=== PATIENT | female | born 1985 | race Caucasian/White ===

== ENCOUNTER 2018-04-30 16:54 | Emergency (ER) | payer OTHER ==
[2018-04-30 17:24] VITALS: O2SAT 100
[2018-04-30] MEDS ORDERED: XYLOCAINE 1% HCL 20 ML MDV IJ ONE (19:00)
[2018-04-30] MEDS ORDERED: Adacel Vial IM ONE ×2 (19:01→19:06)
[2018-04-30] MEDS ORDERED: XYLOCAINE 1% HCL 20 ML MDV ONE (19:08)
--- NOTE | 2018-04-30 19:09 | ERPHSYRPT ---
- History of Present Illness Time Seen by Provider: 04/30/18 18:59 Source: patient Exam Limitations: no limitations Patient Subjective Stated Complaint: cut left thumb and first finger on a tin can lid just prior to arrival. Triage Nursing Assessment: small lac noted to left thumb. 3cm lac to left first finger. patient unable to bend finger. has full rom to thumb. small amt bleeding noted. areas cleaned with sterile water and hibiclens. Physician History: Pt states, she accidentally cut her left thumb and index finger at 16:30 PM at home. She denies other injury or complaints, she does not remember her last Td immunization. Occurred: just prior to arrival Method of Injury: incised Quality: constant Severity of Pain-Max: mild Severity of Pain-Current: mild Extremities Pain Location: thumb: left (cut with can lid), 2nd finger: left ( cut with can lid) Modifying Factors: Improves With: nothing Associated Symptoms: none Allergies/Adverse Reactions: No Known Drug Allergies Allergy (Verified 04/30/18 17:24) Home Medications: No Reportable Medications [No Reported Medications] 07/05/14 [History] Hx Tetanus, Diphtheria Vaccination/Date Given: No Hx Influenza Vaccination/Date Given: No Hx Pneumococcal Vaccination/Date Given: No - Review of Systems Constitutional: No Symptoms Skin: Other (laceration of the left 1st and second fingers) All Other Systems: Reviewed and Negative - Past Medical History Pertinent Past Medical History: Yes Neurological History: No Pertinent History ENT History: No Pertinent History Cardiac History: No Pertinent History Respiratory History: No Pertinent History Endocrine Medical History: No Pertinent History Musculoskeletal History: No Pertinent History GI Medical History: No Pertinent History History: No Pertinent History Psycho-Social History: No Pertinent History Female Reproductive Disorders: Other Other Medical History: one ovary removed d/t benign tumor - Past Surgical History Past Surgical History: Yes Neuro Surgical History: No Pertinent History Cardiac: No Pertinent History Respiratory: No Pertinent History Gastrointestinal: No Pertinent History Genitourinary: No Pertinent History Musculoskeletal: No Pertinent History Female Surgical History: Other Other Surgical History: R OVARY REMOVED - Social History Smoking Status: Never smoker Exposure to second hand smoke: No Drug Use: none Patient Lives Alone: No - Female History Hx Last Menstrual Period: 04/23/18 Hx Now: No - Nursing Vital Signs Nursing Vital Signs: Initial Vital Signs Temperature 9.3 F 10/03/18 16:57 Pulse Rate 88 04/30/18 16:57 Respiratory Rate 16 04/30/18 16:57 Blood Pressure 161/101 04/30/18 16:57 O2 Sat by Pulse Oximetry 100 04/30/18 16:57 Pain Scale Pain Intensity 8 - Physical Exam General Appearance: no apparent distress Eyes, Ears, Nose, Throat Exam: normal ENT inspection, moist mucous membranes Neck Exam: normal inspection, non-tender Cardiovascular/Respiratory Exam: chest non-tender, normal breath sounds, regular rate/rhythm, heart sounds normal Abdominal Exam: non-tender, soft Back Exam: normal inspection, No CVA tenderness Hand Exam: laceration (1 cm superficial laceration on the tip of the thumb, no bleeding or redness. 1.5 cm linear laceration of the dorsal mid phalanx of the left second finger, no bleeding, no sign of tendon on neurovascular injury, normal capillary refills.) Neuro/Tendon Exam: normal sensation, normal motor functions, normal tendon functions Mental Status Exam: alert, oriented x 3 Skin Exam: normal color, warm, dry SpO2 Interpretation: normal SpO2: 100 Oxygen Delivery: Room Air Procedures - Laceration/Wound Repair Left Finger Wound Location: Left, hand Wound Length (cm): 1.5 Wound's Depth, Shape: into muscle, linear Wound Explored: clean Irrigated: Yes Hibiclens Prep: No Anesthesia: digital block, 1% Lidocaine Volume Anesthetic (ccs): 5 Wound Repaired With: sutures Suture Size/Type: 5-0, ethilon Number of Sutures: 5 Layer Closure?: No Sterile Dressing Applied?: Yes Splint Applied?: No Sling Applied?: No Progress: 04/30/18 19:51 The finger extensor was nicked slightly, but good extensor function noted, normal strength of end phalanx stretch. The tendon did not require sutures. Patient tolerated sutures well. - Course Nursing assessment & vital signs reviewed: Yes - Radiology Exams Left Hand X-ray Interpretation: Interpreted by me, Negative Ordered Tests: Active Orders 24 hr Category Date Time Status Prepare for Sutures STAT Care 04/30/18 19:00 Active Sutures STAT Care 04/30/18 19:00 Active Wound Care STAT Care 04/30/18 19:00 Active HAND (MINIMUM 3 VIEWS) Stat Exams 04/30/18 19:01 Taken Medication Summary Discontinued Medications Generic Name Dose Route Start Last Admin Trade Name Freq PRN Reason Stop Dose Admin Diphtheria/Tetanus/Acell Pertussis 0.5 ml 04/30/18 19:01 04/30/18 19:14 Adacel Vial IM 04/30/18 19:02 0.5 ml .ONCE ONE Administration Diphtheria/Tetanus/Acell Pertussis Confirm 04/30/18 19:06 Adacel Vial Administered 04/30/18 19:07 Dose 0.5 ml IM .STK-MED ONE Lidocaine HCl 5 ml 04/30/18 19:00 04/30/18 19:15 Xylocaine 1% Hcl 20 Ml Mdv IJ 04/30/18 19:01 5 ml STAT ONE Administration Lidocaine HCl Confirm 04/30/18 19:08 Xylocaine 1% Hcl 20 Ml Mdv Administered 04/30/18 19:09 Dose 5 ml .ROUTE .STK-MED ONE - Progress Progress: improved Progress Note: 04/30/18 19:53 Pt has been stable, no severe pain, I informed about the X ray report, and will discharge instructing to change sterile dry dressing daily, remove sutures after 1 week, return if severe pain,s welling, redness, discharge or fever> 101 F. Counseled pt/family regarding: diagnosis, need for follow-up, rad results - Departure Time of Disposition: 19:54 Departure Disposition: Home Clinical Impression: Laceration of finger of left hand Qualifiers: Encounter type: initial encounter Finger: index finger Damage to nail status: without damage Foreign body presence: without foreign body Qualified Code(s): S61.211A - Laceration without foreign body of left index finger without damage to nail, initial encounter Condition: Stable Critical Care Time: No Referrals: LATOYA TAYLOR [Primary Care Provider] - Instructions: Wound Care (DC), Laceration Repair With Stitches (DC) Additional Instructions: Removal of the sutures after 1 week, return if severe pain, redness, discharge, fever> 101 F, follow up with your PCP after 2-3 days.
[2018-04-30 20:11] VITALS: BP 134/84; PULSE 84
--- NOTE | 2018-05-01 08:32 | XRAY ---
Indication: Laceration. Comparison: None 3 views of the left hand demonstrates distal 2nd finger laceration. No other bony, articular, or soft tissue abnormalities.
== END 2018-04-30 20:11 | disposition home or self-care (01) ==
LOC: ED 16:54
PROC: 0HQGXZZ Repair Left Hand Skin, External Approach (ICD-10-PCS; principal; 2018-04-30)
DX: S66.321A Laceration of extensor muscle, fascia and tendon of left index finger at wrist and hand level, initial encounter (principal); S61.012A Laceration without foreign body of left thumb without damage to nail, initial encounter; W26.8XXA Contact with other sharp object(s), not elsewhere classified, initial encounter
CPT/HCPCS: 12001; 73130; 90471; 90715; 96372; 99284

== ENCOUNTER 2021-07-19 17:11 | Emergency (ER) | payer BC, OTHER, SELFPAY ==
[2021-07-19 17:32] VITALS: BP 161/102; PULSE 104; O2SAT 98
--- NOTE | 2021-07-19 17:35 | ERPHSYRPT ---
- History of Present Illness Time Seen by Provider: 07/19/21 17:30 Source: patient Exam Limitations: no limitations Physician History: Patient is a 35-year-old female presents to our ED with left elbow pain. Patient states she was rollerskating and fell onto her left elbow. No other injuries. Injury occurred approximately 2 hours ago. Pain described as an ache that is well localized mostly to the posterior elbow. Pain worse with movement palpation and extension of her left elbow. No shoulder pain. No neck pain. Cervical spine cleared clinically. No BHT or LOC. No chest pain or shortness of breath. Patient's fall was due to rollerskating. It was not related to any neuro cardiovascular symptomology. Patient is otherwise healthy. Patient voices no other complaints or concerns at this time. Patient declined pain medication. Occurred: just prior to arrival Method of Injury: fell Quality: constant Severity of Pain-Max: moderate Severity of Pain-Current: mild Extremities Pain Location: elbow: left Modifying Factors: Improves With: movement Associated Symptoms: none Allergies/Adverse Reactions: No Known Drug Allergies Allergy (Verified 07/19/21 17:32) Home Medications: PARoxetine HCl [Paxil] 10 mg PO DAILY 07/19/21 [History] Hx Tetanus, Diphtheria Vaccination/Date Given: No Hx Influenza Vaccination/Date Given: No Hx Pneumococcal Vaccination/Date Given: No - Review of Systems Constitutional: No Symptoms, No Fever, No Chills Eyes: No Symptoms Ears, Nose, & Throat: No Symptoms Respiratory: No Symptoms, No Cough, No Dyspnea Cardiac: No Symptoms, No Chest Pain, No Edema, No Syncope Abdominal/Gastrointestinal: No Symptoms, No Abdominal Pain, No Nausea, No Vomiting, No Diarrhea Genitourinary Symptoms: No Symptoms, No Dysuria Musculoskeletal: No Symptoms, No Back Pain, No Neck Pain Skin: No Symptoms, No Rash Neurological: No Symptoms, No Dizziness, No Focal Weakness, No Sensory Changes Psychological: No Symptoms Endocrine: No Symptoms Hematologic/Lymphatic: No Symptoms Immunological/Allergic: No Symptoms All Other Systems: Reviewed and Negative - Past Medical History Pertinent Past Medical History: Yes Neurological History: No Pertinent History ENT History: No Pertinent History Cardiac History: No Pertinent History Respiratory History: No Pertinent History Endocrine Medical History: No Pertinent History Musculoskeletal History: No Pertinent History GI Medical History: No Pertinent History History: No Pertinent History Psycho-Social History: No Pertinent History Female Reproductive Disorders: Other Other Medical History: one ovary removed d/t benign tumor - Past Surgical History Past Surgical History: Yes Neuro Surgical History: No Pertinent History Cardiac: No Pertinent History Respiratory: No Pertinent History Gastrointestinal: No Pertinent History Genitourinary: No Pertinent History Musculoskeletal: No Pertinent History Female Surgical History: Other Other Surgical History: R OVARY REMOVED - Social History Smoking Status: Never smoker Exposure to second hand smoke: No Drug Use: none Patient Lives Alone: No - Nursing Vital Signs Nursing Vital Signs: Initial Vital Signs Temperature 97.9 F 07/19/21 17:25 Pulse Rate 104 H 07/19/21 17:25 Blood Pressure 161/102 07/19/21 17:25 O2 Sat by Pulse Oximetry 98 07/19/21 17:25 Pain Scale Pain Intensity 8 - Physical Exam General Appearance: no apparent distress, alert Eyes, Ears, Nose, Throat Exam: normal ENT inspection, TMs normal, pharynx normal, moist mucous membranes Neck Exam: normal inspection, non-tender, supple, full range of motion Cardiovascular/Respiratory Exam: chest non-tender, normal breath sounds, regular rate/rhythm, no respiratory distress Abdominal Exam: non-tender, soft, No no organomegaly, No no hernia, No guarding Back Exam: normal inspection, normal range of motion, No CVA tenderness, No vertebral tenderness Shoulder Exam: normal inspection, non-tender, no evidence of injury, normal ROM Elbow/Forearm Exam: limited ROM (Left elbow tenderness to palpation just proximal to the olecranon. Patient is holding her elbow in 90 degrees of flexion. Extension worsens symptoms. Right elbow is asymptomatic.), pain, swelling (Minimal swelling. Extremities neurovascular intact distally. Compartments are soft. Cap refill less than 2 seconds. Radial pulses palpable. Patient neurovascular tact distally.) Hand Exam: normal inspection, non-tender, no evidence of injury, normal ROM Neuro/Tendon Exam: normal sensation, normal motor functions, normal tendon functions Mental Status Exam: alert, oriented x 3, cooperative Skin Exam: normal color, warm, dry SpO2 Interpretation: normal SpO2: 98 O2 Delivery: Room Air - Course Nursing assessment & vital signs reviewed: Yes - Radiology Exams Elbow X-ray Interpretation: Interpreted by me (There appears to be a fracture at the radial neck. Patient immobilized and sent to Ortho. Positive fat pad sign. No dislocation. No soft tissue abnormalities.) Ordered Tests: Active Orders 24 hr Category Date Time Status Sling Application STAT Care 07/19/21 19:44 Completed Splint STAT Care 07/19/21 19:44 Completed ELBOW (MINIMUM 3 VIEWS) Stat Exams 07/19/21 17:30 Taken Medication Summary Discontinued Medications Generic Name Dose Route Start Last Admin Trade Name Tessa PRN Reason Stop Dose Admin Ketorolac Tromethamine 30 mg 07/19/21 19:30 07/19/21 19:31 Ketorolac Tromethamine 30 Mg/Ml Inj IM 07/19/21 19:31 30 mg STAT ONE Administration Ketorolac Tromethamine Confirm 07/19/21 19:31 Ketorolac Tromethamine 30 Mg/Ml Inj Administered 07/19/21 19:32 Dose 30 mg .ROUTE .STSciGit-MED ONE - Progress Progress: improved Progress Note: X-ray suggestive of radial neck fracture. Patient placed in a sugar tong splint. Patient immobilized in a shoulder sling. Patient referred to orthopedic clinic for follow-up. Patient neurovascular tact distally post splint application. Patient declined pain medication. Patient states is ready for discharge. Portions of this note were created with voice recognition technology. There may be grammatical, spelling, punctuation or sound alike errors 07/19/21 19:11 A prescription for Toradol was provided to patient. 07/19/21 19:18 Counseled pt/family regarding: diagnosis, need for follow-up, rad results - Departure Departure Disposition: Home Clinical Impression: Elbow fracture, left, Radial neck fracture Condition: Stable Critical Care Time: No Referrals: LUIS STEVENS, SCOUTS [Primary Care Provider] - Follow up/PCP as directed Instructions: Elbow Fracture (DC) Additional Instructions: Discharge/Care Plan ELLYNOLGA AMY was seen on 07/19/21 in the Emergency Room. The patient was counseled regarding Diagnosis,Lab results, Imaging studies, need for follow up and when to return to the Emergency Room. Prescriptions given: Discharge Note I have spoken with the patient and/or caregivers. I have explained the patient's condition, diagnosis and treatment plan based on the information available to me at this time. I have answered the patient's and/or caregiver's questions and addressed any concerns. The patient and/or caregivers have as good understanding of the patient's diagnosis, condition and treatment plan as can be expected at this point. The vital signs have been stable. The patient's condition is stable and appropriate for discharge from the emergency department. The patient will pursue further outpatient evaluation with the primary care physician or other designated or consulting physician as outlined in the discharge instructions. The patient and/or caregivers are agreeable to this plan of care and follow-up instructions have been explained in detail. The patient and/or caregivers have received these instruction. The patient/and or caregivers are aware that any significant change in condition or worsening of symptoms should prompt an immediate return to this or the closest emergency department or call 911. Outpatient Orders: Ortho Referral Time Frame: 1 Day, Facility: [facility], Location: [facility]
[2021-07-19] MEDS: TORAdol 30 mg Injection IM ONE (19:31)
[2021-07-19] MEDS ORDERED: TORAdol 30 mg Injection ONE (19:31)
--- NOTE | 2021-07-20 09:01 | XRAY ---
Indication: Pain following fall. Comparison: None 3 view left elbow demonstrates nondisplaced hairline fracture proximal radius with effusion. No other bony, articular, or soft tissue abnormalities.
== END 2021-07-19 19:43 | disposition home or self-care (01) ==
LOC: ED 17:11
DX: S52.132A Displaced fracture of neck of left radius, initial encounter for closed fracture (principal); V00.121A Fall from non-in-line roller-skates, initial encounter; Y93.51 Activity, roller skating (inline) and skateboarding
CPT/HCPCS: 73080; 96372; 99284; J1885